=== PATIENT | female | born 1955 | race Caucasian/White ===

== ENCOUNTER 2017-07-22 23:46 | Emergency (ER) | payer BC, MEDICARE ==
[2017-07-23 00:16] VITALS: RESP 16
[2017-07-23] MEDS ORDERED: DIPH,PERTUS(ACELL)TETVAC-LF 0.5 ML VIAL IM ONE (00:21)
[2017-07-23] MEDS ORDERED: ACETAMINOPHEN TAB 325 MG TAB PO STA (00:21)
--- NOTE | 2017-07-23 00:26 | ED ---
Wound/Laceration HPI - General Chief Complaint: Wound/Laceration Stated Complaint: head lac Time Seen by Provider: 07/23/17 00:14 Source: patient Mode of arrival: ambulatory Limitations: no limitations - History of Present Illness Initial Comments: 61-year-old female patient presents to the emergency department today for evaluation after sustaining a head injury. Patient states approximately one and a half hours ago she was at a bar dancing when she tripped over her own feet and fell backwards hitting her head on the table. She denies any loss of consciousness at the time of injury. She reports drinking 2 beers this evening. She states she has a mild headache. She denies any dizziness, weakness, nausea, vomiting, blurred vision, or double vision. She states overall she is feeling well. She denies any use of anticoagulants. She is unsure when her last tetanus vaccine was given. Patient denies any neck pain, back pain, chest pain, shortness of breath, abdominal pain, or difficulties with bowel movements or urination. - Related Data Allergies Allergy/AdvReac Type Severity Reaction Status Date / Time No Known Allergies Allergy Verified 07/23/17 00:00 Review of Systems ROS Statement: Those systems with pertinent positive or pertinent negative responses have been documented in the HPI. ROS Other: All systems not noted in ROS Statement are negative. Past Medical History Past Medical History: No Reported History History of Any Multi-Drug Resistant Organisms: None Reported Past Surgical History: Orthopedic Surgery Past Psychological History: No Psychological Hx Reported Smoking Status: Former smoker Past Alcohol Use History: Occasional Past Drug Use History: None Reported General Exam Limitations: no limitations General appearance: alert, in no apparent distress, other (This is a well- developed, well-nourished adult female patient in no acute distress. Vital signs upon presentation are temperature 97.0F, pulse 68, respirations 16, blood pressure 152/84, pulse ox 98% on room air.) Head exam: Present: other (Patient has a 3 cm laceration to the left posterior scalp, bleeding is controlled, no bony step-off or deformity noted to palpation surrounding the laceration) Eye exam: Present: normal appearance, PERRL, EOMI. Absent: scleral icterus, conjunctival injection, periorbital swelling ENT exam: Present: normal exam, normal oropharynx, mucous membranes moist Neck exam: Present: normal inspection, full ROM, other (Nontender, no step-off, no deformity to firm midline palpation of the posterior cervical spine. Full range of motion without pain or limitation.). Absent: tenderness, meningismus, lymphadenopathy Respiratory exam: Present: normal lung sounds bilaterally. Absent: respiratory distress, wheezes, rales, rhonchi, stridor Cardiovascular Exam: Present: regular rate, normal rhythm, normal heart sounds. Absent: systolic murmur, diastolic murmur, rubs, gallop, clicks GI/Abdominal exam: Present: soft, normal bowel sounds. Absent: distended, tenderness, guarding, rebound, rigid Back exam: Present: normal inspection, other (Nontender, no step-off, no deformity to firm midline palpation of the thoracic and lumbar vertebrae. Full range of motion without pain or limitation.). Absent: vertebral tenderness Neurological exam: Present: alert, oriented X3, CN II-XII intact, other ( Strength in all 4 extremities is 5/5) Psychiatric exam: Present: normal affect, normal mood Skin exam: Present: warm, dry, intact, normal color. Absent: rash Course Vital Signs 07/22/17 23:55 Temperature 97.0 F L Pulse Rate 68 Respiratory 16 Rate Blood Pressure 152/84 O2 Sat by Pulse 98 Oximetry Procedures - Laceration Laceration #1 Consent Obtained: verbal consent Time Out Performed: Yes Indication: laceration Site: scalp Size (cm): 3 Description: linear Depth: simple, single layer Pre-repair: wound explored, irrigated extensively Type of Sutures: other (Cinthya) Number of Sutures: 6 Patient Tolerated Procedure: well, no complications Medical Decision Making - Medical Decision Making 61-year-old female patient presents to the emergency department today for evaluation after sustaining a head injury and laceration to her posterior scalp. Physical examination does reveal a 3 cm laceration to the posterior scalp. Bleeding is currently controlled. Patient is neurologically intact. Patient is adamant that she had only 2 beers this evening and appears to be clinically sober. She is refusing CT scan at this time. I did discuss the risks of not having this test performed, she verbalizes understanding. Laceration was repaired with cinthya. Patient tolerated the procedure well. She is educated regarding signs or symptoms of infection. She is educated regarding signs or symptoms of worsening head injury. She is instructed to follow up with her primary care physician for recheck in 1-2 days. She is instructed to return here in 7 days for staple removal. She is instructed to return here for any other new, worsening, or concerning symptoms. She verbalizes understanding and agrees with this plan. Disposition Clinical Impression: Head injury, Laceration Disposition: HOME SELF-CARE Condition: Good Instructions: Laceration (ED), Head Injury (ED), Staple Care (ED) Additional Instructions: Monitor for signs or symptoms of worsening head injury including but not limited to confusion, increased headache, vomiting, dizziness, weakness, or visual changes. Monitor for signs or symptoms of infection to her laceration including but not limited to swelling, redness, drainage of pus, fever, or chills. Keep wound clean and dry. Return in 7 days to have your cinthya removed. Follow-up with her primary care physician for recheck in 1-2 days. Return here immediately for any new, worsening, or concerning symptoms. Referrals: Lucas Glynn MD [Primary Care Provider] - 1-2 days Time of Disposition: 00:54
[2017-07-23 01:10] VITALS: BP 150/78; PULSE 74; TEMP 97.8
== END 2017-07-23 01:09 | disposition home or self-care (01) ==
LOC: EC 07-23 00:44
DX: S01.01XA Laceration without foreign body of scalp, initial encounter (principal); Z87.891 Personal history of nicotine dependence; Z23 Encounter for immunization; W01.190A Fall on same level from slipping, tripping and stumbling with subsequent striking against furniture, initial encounter; Y93.41 Activity, dancing; Y92.89 Other specified places as the place of occurrence of the external cause
CPT/HCPCS: 12002; 90471; 90715; 99282

== ENCOUNTER 2020-04-25 15:37 | Emergency (ER) | payer MEDICARE ==
[2020-04-25 15:40] VITALS: RESP 18
[2020-04-25] MEDS ORDERED: DIPH,PERTUS(ACELL)TETVAC-LF 0.5 ML VIAL IM ONE (16:00)
[2020-04-25] MEDS ORDERED: LIDOCAINE 1% INJ 10MG/ML (20 ML MDV) SQ ONE (16:01)
--- NOTE | 2020-04-25 16:09 | ED ---
General Adult HPI - General Chief complaint: Wound/Laceration Stated complaint: L Finger Injury Time Seen by Provider: 04/25/20 15:55 Source: patient Mode of arrival: wheelchair Limitations: no limitations - History of Present Illness Initial comments: Dictation was produced using [employer] dictation software. please excuse any grammatical, word or spelling errors. This patient was cared for during a federal and state declared state of emergency secondary to Covid 19 Chief Complaint: 64-year-old female presents with an injury from table saw History of Present Illness: 8-year-old female approximately 30 minutes prior to arrival she was working on a table saw making a [employer] stand base. She was cutting wood when she didn't realize that the saw blade did not stop completely. She reached out to grab the piece would when she cut her left index finger on the medial aspect. Patient states she has past medical history of p soriatic arthritis. She denies any other medical history. The ROS documented in this emergency department record has been reviewed and confirmed by me. Those systems with pertinent positive or negative responses have been documented in the HPI. All other systems are other negative and/or noncontributory. PHYSICAL EXAM: General Impression: Alert and oriented x3, not in acute distress HEENT: Normocephalic atraumatic, extra-ocular movements intact, pupils equal and reactive to light bilaterally, mucous membranes moist. Cardiovascular: Heart regular rate and rhythm Chest: Able to complete full sentences, no retractions, no tachypnea Abdomen: abdomen soft, non-tender, non-distended, no organomegaly Musculoskeletal: Pulses present and equal in all extremities, no peripheral edema Motor: no focal deficits noted Left hand: Small 1 cm laceration to the left medial aspect of the distal left index finger in an oblique fashion. The lateral portion of the left index finger appears to be atraumatic. No exposed bone Neurological: CN II-XII grossly intact, no focal motor or sensory deficits noted Skin: Intact with no visualized rashes Psych: Normal affect and mood ED course: 64-year-old feel presents with left index finger laceration from table saw. As upon arrival are within acceptable limits. Patient's tetanus was updated. She does not know when her last tetanus shot was. X-ray shows comminuted show of the tuft of the left index finger. Laceration was repaired at bedside. Please see laceration note for more details. Patient tolerated procedure well. Patient placed in bandage and finger splint. Patient told that stitches should stay intact for 10-14 days. Patient's given follow-up with orthopedic surgery for outpatient follow-up of finger injury sheet given prescription for [place] and Keflex. Return parameters discussed. Patient clear for discharge. Patient is counseled on nonweightbearing to the left index finger. - Related Data Previous Rx's Medication Instructions Recorded Cephalexin [Keflex] 500 mg PO Q6HR 5 Days #20 cap 04/25/20 HYDROcodone/APAP 5-325MG [[place] 1 tab PO Q6HR PRN 3 Days #12 tab 04/25/20 5-325] Allergies Allergy/AdvReac Type Severity Reaction Status Date / Time amoxicillin [From Augmentin] Allergy Rash/Hives Verified 04/25/20 15:40 clavulanic acid Allergy Rash/Hives Verified 04/25/20 15:40 [From Augmentin] Review of Systems ROS Statement: Those systems with pertinent positive or pertinent negative responses have been documented in the HPI. ROS Other: All systems not noted in ROS Statement are negative. Past Medical History Past Medical History: No Reported History History of Any Multi-Drug Resistant Organisms: None Reported Past Surgical History: Orthopedic Surgery Past Psychological History: No Psychological Hx Reported Smoking Status: Current every day smoker Past Alcohol Use History: Occasional Past Drug Use History: None Reported General Exam Limitations: no limitations Course Vital Signs 04/25/20 15:37 Temperature 97.6 F Pulse Rate 97 Respiratory 18 Rate Blood Pressure 125/84 O2 Sat by Pulse 98 Oximetry Procedures - Laceration Laceration #1 Consent Obtained: verbal consent Indication: laceration Site: hand (left distal index finger. 2 cm) Depth: simple, single layer, involves muscle layer Anesthetic Used: lidocaine 1% Anesthesia Technique: nerve block (digital nerve block) Pre-repair: irrigated extensively Type of Sutures: nylon Size of Sutures: 4-0 Number of Sutures: 8 Technique: simple, interrupted Patient Tolerated Procedure: well Disposition Clinical Impression: Finger laceration Disposition: HOME SELF-CARE Condition: Fair Instructions (If sedation given, give patient instructions): Care For Your Stitches (DC), Laceration (ED) Additional Instructions: Do not use your left index finger. Keep it maintained in the splint. Allowed to take off the splint and bandage to wash with warm soapy water. Stitches will remain in place for the next 10-14 days. Given follow-up with outpatient orthopedic surgery for outpatient management of your finger. Basic medical attention with worsening pain, erythema or drainage of the wound site. These could be signs of infection that need medical evaluation as soon as possible. Prescriptions: Cephalexin [Keflex] 500 mg PO Q6HR 5 Days #20 cap HYDROcodone/APAP 5-325MG [[place] 5-325] 1 tab PO Q6HR PRN 3 Days #12 tab PRN Reason: Severe Pain Is patient prescribed a controlled substance at d/c from ED?: Yes If prescribed controlled substance>3 days was MAPS reviewed?: Prescribed <3 Days Referrals: Adan Medina DO [Doctor of Osteopathic Medicine] - 1-2 days Time of Disposition: 16:43
[2020-04-25] MEDS ORDERED: BACITRACIN OINT 1 EACH PACKET TOPICAL ONE (16:39)
--- NOTE | 2020-04-25 16:43 | XR ---
EXAMINATION TYPE: XR finger LT DATE OF EXAM: 04/25/2020 COMPARISON: None HISTORY: Trauma. Laceration TECHNIQUE: 3 views FINDINGS: There is partial amputation deformity of the distal phalanx of the index finger across the mid shaft. There is no evidence of a foreign body. There is laceration deformity of the soft tissues. There is comminuted fracture of the mid shaft of the distal phalanx. IMPRESSION: Laceration and partial amputation deformity with comminuted fracture.
[2020-04-25 16:54] VITALS: BP 129/85; PULSE 67; TEMP 97.8
== END 2020-04-25 16:53 | disposition home or self-care (01) ==
LOC: EC 15:37
DX: S61.211A Laceration without foreign body of left index finger without damage to nail, initial encounter (principal); F17.200 Nicotine dependence, unspecified, uncomplicated; Z88.0 Allergy status to penicillin; Z88.1 Allergy status to other antibiotic agents; W31.2XXA Contact with powered woodworking and forming machines, initial encounter
CPT/HCPCS: 73140; 90715; 99283; 12001; 90471; J2001